=== PATIENT | male | born 1940 | race Caucasian/White ===

== ENCOUNTER 2019-02-23 08:41 | Emergency (ER) | payer MEDICARE ==
[2019-02-23 08:48] VITALS: RESP 18; TEMP 98.1
[2019-02-23] MEDS ORDERED: LISINOPRIL-HCTZ 20-12.5 MG 1 EACH TAB PO STA (09:10)
--- NOTE | 2019-02-23 09:10 | ED ---
General Adult HPI - General Chief complaint: Abdominal Pain Stated complaint: abd pain Time Seen by Provider: 02/23/19 09:00 Source: patient, RN notes reviewed Mode of arrival: ambulatory Limitations: no limitations - History of Present Illness Initial comments: Patient is a pleasant 79-year-old male presenting to the emergency Department with complaints of abdominal discomfort. Onset of symptoms was almost 2 weeks ago. Symptoms have been mild waxing and waning. Symptoms were worse today and discomfort is now moderate, rated 5/10. No associated nausea vomiting. No fevers. Patient did have some mild amount of loose stools. 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 Discomfort gets worse with pushing on the abdomen. Discomfort is left lower flank region. No back pain. Patient did not take his blood pressure medication this morning. - Related Data Home Medications Medication Instructions Recorded Confirmed Atorvastatin [Lipitor] 40 mg PO HS 08/01/16 02/23/19 Levothyroxine Sodium [Synthroid] 88 mcg PO DAILY 08/01/16 02/23/19 Warfarin [Coumadin] 2.5 mg PO MOWEFR 08/01/16 02/23/19 Warfarin [Coumadin] 5 mg PO SUTUTHSA 08/01/16 02/23/19 Lisinopril-Hctz 20-25 mg 1 tab PO DAILY 02/23/19 02/23/19 [Zestoretic 20-25] Metoprolol Succinate [Toprol Xl] 50 mg PO DAILY 02/23/19 02/23/19 amLODIPine [Norvasc] 5 mg PO DAILY 02/23/19 02/23/19 Previous Rx's Medication Instructions Recorded Dicyclomine [Bentyl] 20 mg PO QID PRN #20 tablet 02/23/19 Allergies Allergy/AdvReac Type Severity Reaction Status Date / Time meperidine [From Demerol] AdvReac Vomiting Verified 02/23/19 09:20 Review of Systems ROS Statement: Those systems with pertinent positive or pertinent negative responses have been documented in the HPI. ROS Other: All systems not noted in ROS Statement are negative. Constitutional: Denies: fever Eyes: Denies: eye pain ENT: Denies: ear pain Respiratory: Denies: cough Cardiovascular: Denies: chest pain Endocrine: Denies: fatigue Gastrointestinal: Reports: as per HPI Genitourinary: Denies: dysuria, hematuria Musculoskeletal: Denies: back pain Skin: Denies: rash Neurological: Denies: weakness Past Medical History Past Medical History: Atrial Fibrillation, Hypertension, Myocardial Infarction ([place]) Additional Past Medical History / Comment(s): hyperthyroidism History of Any Multi-Drug Resistant Organisms: None Reported Past Surgical History: Coronary Bypass/CABG, Heart Catheterization With Stent Past Psychological History: No Psychological Hx Reported Smoking Status: Former smoker Past Alcohol Use History: None Reported Past Drug Use History: None Reported General Exam Limitations: no limitations General appearance: alert, in no apparent distress Head exam: Present: normocephalic Eye exam: Present: normal appearance Neck exam: Present: normal inspection Respiratory exam: Present: normal lung sounds bilaterally Cardiovascular Exam: Present: regular rate, normal rhythm Expanded Peripheral pulses: 2+: Dorsalis Pedis (R), Dorsalis Pedis (L) GI/Abdominal exam: Present: soft, tenderness (Mild tenderness left lower flank region.), normal bowel sounds. Absent: distended, guarding, rebound, rigid, pulsatile mass Extremities exam: Present: normal inspection. Absent: pedal edema, calf tenderness Neurological exam: Present: alert Psychiatric exam: Present: normal affect, normal mood Skin exam: Present: normal color Course Vital Signs 02/23/19 02/23/19 08:45 10:09 Temperature 98.1 F Pulse Rate 77 70 Respiratory 18 18 Rate Blood Pressure 194/101 168/96 O2 Sat by Pulse 93 L 93 L Oximetry - Reevaluation(s) Reevaluation #1: 02/23/19 09:40 Patient does not want any pain medication. Medical Decision Making - Medical Decision Making Patient reevaluated and resting comfortably in bed. Patient and family updated on results and need for follow-up. - Lab Data Result diagrams: 02/23/19 09:02 02/23/19 09:02 Lab Results 02/23/19 02/23/19 02/23/19 Range/Units 09:02 09:02 09:02 WBC 9.5 (3.8-10.6) k/uL RBC 4.73 (4.30-5.90) m/uL Hgb 15.2 (13.0-17.5) gm/dL Hct 46.7 (39.0-53.0) % MCV 98.7 (80.0-100.0) fL MCH 32.1 (25.0-35.0) pg MCHC 32.5 (31.0-37.0) g/dL RDW 14.9 (11.5-15.5) % Plt Count 206 (150-450) k/uL Neutrophils % 79 % Lymphocytes % 11 % Monocytes % 6 % Eosinophils % 2 % Basophils % 1 % Neutrophils # 7.5 (1.3-7.7) k/uL Lymphocytes # 1.1 (1.0-4.8) k/uL Monocytes # 0.6 (0-1.0) k/uL Eosinophils # 0.2 (0-0.7) k/uL Basophils # 0.1 (0-0.2) k/uL PT 23.5 H (9.0-12.0) sec INR 2.4 H (<1.2) APTT 35.8 H (22.0-30.0) sec Sodium 142 (137-145) mmol/L Potassium 4.2 (3.5-5.1) mmol/L Chloride 108 H (98-107) mmol/L Carbon Dioxide 21 L (22-30) mmol/L Anion Gap 13 mmol/L BUN 28 H (9-20) mg/dL Creatinine 1.48 H (0.66-1.25) mg/dL Est GFR (CKD-EPI)AfAm 51 (>60 ml/min/1.73 sqM) Est GFR (CKD-EPI)NonAf 44 (>60 ml/min/1.73 sqM) Glucose 102 H (74-99) mg/dL Calcium 10.1 (8.4-10.2) mg/dL Total Bilirubin 1.1 (0.2-1.3) mg/dL AST 26 (17-59) U/L ALT 24 (21-72) U/L Alkaline Phosphatase 170 H (38-126) U/L Total Protein 7.8 (6.3-8.2) g/dL Albumin 4.4 (3.5-5.0) g/dL Amylase 146 H (30-110) U/L Lipase 288 (23-300) U/L Urine Color Urine Appearance (Clear) Urine pH (5.0-8.0) Ur Specific [place] (1.001-1.035) Urine Protein (Negative) Urine Glucose (UA) (Negative) Urine Ketones (Negative) Urine Blood (Negative) Urine Nitrite (Negative) Urine Bilirubin (Negative) Urine Urobilinogen (<2.0) mg/dL Ur Leukocyte Esterase (Negative) Urine RBC (0-5) /hpf Urine WBC (0-5) /hpf Urine WBC Clumps (None) /hpf Ur Squamous Epith Cells (0-4) /hpf Urine Mucus (None) /hpf 02/23/19 Range/Units 09:02 WBC (3.8-10.6) k/uL RBC (4.30-5.90) m/uL Hgb (13.0-17.5) gm/dL Hct (39.0-53.0) % MCV (80.0-100.0) fL MCH (25.0-35.0) pg MCHC (31.0-37.0) g/dL RDW (11.5-15.5) % Plt Count (150-450) k/uL Neutrophils % % Lymphocytes % % Monocytes % % Eosinophils % % Basophils % % Neutrophils # (1.3-7.7) k/uL Lymphocytes # (1.0-4.8) k/uL Monocytes # (0-1.0) k/uL Eosinophils # (0-0.7) k/uL Basophils # (0-0.2) k/uL PT (9.0-12.0) sec INR (<1.2) APTT (22.0-30.0) sec Sodium (137-145) mmol/L Potassium (3.5-5.1) mmol/L Chloride (98-107) mmol/L Carbon Dioxide (22-30) mmol/L Anion Gap mmol/L BUN (9-20) mg/dL Creatinine (0.66-1.25) mg/dL Est GFR (CKD-EPI)AfAm (>60 ml/min/1.73 sqM) Est GFR (CKD-EPI)NonAf (>60 ml/min/1.73 sqM) Glucose (74-99) mg/dL Calcium (8.4-10.2) mg/dL Total Bilirubin (0.2-1.3) mg/dL AST (17-59) U/L ALT (21-72) U/L Alkaline Phosphatase (38-126) U/L Total Protein (6.3-8.2) g/dL Albumin (3.5-5.0) g/dL Amylase (30-110) U/L Lipase (23-300) U/L Urine Color Yellow Urine Appearance Clear (Clear) Urine pH 5.5 (5.0-8.0) Ur Specific [place] 1.015 (1.001-1.035) Urine Protein Negative (Negative) Urine Glucose (UA) Negative (Negative) Urine Ketones Negative (Negative) Urine Blood Negative (Negative) Urine Nitrite Negative (Negative) Urine Bilirubin Negative (Negative) Urine Urobilinogen <2.0 (<2.0) mg/dL Ur Leukocyte Esterase Large H (Negative) Urine RBC <1 (0-5) /hpf Urine WBC 10 H (0-5) /hpf Urine WBC Clumps Rare H (None) /hpf Ur Squamous Epith Cells <1 (0-4) /hpf Urine Mucus Rare H (None) /hpf - Radiology Data Radiology results: report reviewed (Computed tomography scan of the abdomen pelvis shows diverticulosis without diverticulitis. Atrophy of left kidney. Age indeterminate compression deformity T12.) Disposition Clinical Impression: Abdominal pain Disposition: HOME SELF-CARE Condition: Stable Instructions (If sedation given, give patient instructions): Abdominal Pain (ED) Additional Instructions: Please follow-up with your primary care physician in the next day or 2 for recheck. Return for increased pain, fevers, worsening or changing symptoms or other concerns. Prescriptions: Dicyclomine [Bentyl] 20 mg PO QID PRN #20 tablet PRN Reason: Pain Is patient prescribed a controlled substance at d/c from ED?: No Referrals: Sergey Kauffman DO [Primary Care Provider] - 1-2 days
[2019-02-23 09:48] LABS: Basophils # (A) 0.1 k/uL (0-0.2); Basophils % (A) 1 %; Eosinophils # (A) 0.2 k/uL (0-0.7); Eosinophils % (A) 2 %; HCT 46.7 % (39.0-53.0); HGB 15.2 gm/dL (13.0-17.5); Lymphocytes # (A) 1.1 k/uL (1.0-4.8); Lymphocytes % (A) 11 %; MCH 32.1 pg (25.0-35.0); MCHC 32.5 g/dL (31.0-37.0); MCV 98.7 fL (80.0-100.0); Monocytes # (A) 0.6 k/uL (0-1.0); Monocytes % (A) 6 %; Neutrophils # (A) 7.5 k/uL (1.3-7.7); Neutrophils % (A) 79 %; Platelet Count 206 k/uL (150-450); RBC 4.73 m/uL (4.30-5.90); RDW 14.9 % (11.5-15.5); WBC 9.5 k/uL (3.8-10.6)
[2019-02-23 09:49] LABS: Appearance,Urine Clear (Clear); Bilirubin,Urine Negative (Negative); Blood,Urine Negative (Negative); Color,Urine Yellow; Glucose,Urine (UA) Negative (Negative); Ketones,Urine Negative (Negative); Leukocyte Esterase,Urine Large (Negative); Mucus,Urine Rare /hpf; Nitrite,Urine Negative (Negative); PH, Urine 5.5 (5.0-8.0); Protein,Urine Negative (Negative); RBC,Urine <1 /hpf (0-5); Specific Gravity,Urine 1.015 (1.001-1.035); Squamous Epithelial Cell,Urine <1 /hpf (0-4); Urobilinogen,Urine <2.0 mg/dL (<2.0); WBC,Urine 10 /hpf (0-5)
[2019-02-23 09:55] LABS: INR 2.4 (<1.2); Partial Thromboplastin Time 35.8 sec (22.0-30.0); Prothrombin Time 23.5 sec (9.0-12.0)
[2019-02-23 10:07] LABS: Albumin 4.4 g/dL (3.5-5.0); Calcium 10.1 mg/dL (8.4-10.2); Potassium 4.2 mmol/L (3.5-5.1); Total Bilirubin 1.1 mg/dL (0.2-1.3); Total Protein 7.8 g/dL (6.3-8.2)
[2019-02-23] MEDS ORDERED: SODIUM CHLORIDE 0.9% 1,000 ML IV STA (10:28)
--- NOTE | 2019-02-23 12:30 | CT ---
EXAMINATION TYPE: CT abdomen pelvis w con DATE OF EXAM: 02/23/2019 COMPARISON: 07/06/2016 HISTORY: Left side abdominal pain. CT DLP: 923.4 mGycm Automated exposure control for dose reduction was used. CONTRAST: CT scan of the abdomen pelvis is performed with IV Contrast, patient injected with 80 mL of Isovue 30 0. FINDINGS- LUNG BASES-heart is enlarged there is coronary artery calcification. Subsegmental consolidation at galilea th lung bases. Findings suggest chronic interstitial lung disease.. LIVER/GB- No gross abnormality is appreciated. PANCREAS- No gross abnormality is seen. SPLEEN- No gross abnormality is seen. ADRENALS- No gross abnormality is seen. KIDNEYS/BLADDER-no hydronephrosis. There is a exophytic lesion extending off the upper pole the right kidney too small to characterize but likely related to chest. 2 hypodense lesions involving the left kidney also likely related to simple cyst although there is severe cortical loss and atrophy of the left kidney.. BOWEL-diverticulosis of the colon. No CT evidence of diverticulitis.. LYMPH NODES- No greater than 1cm abdominal or pelvic lymph nodes areappreciated. OSSEOUS STRUCTURES-hypertrophic and degenerative change of the spine. There is a superior endplate co mpression fracture of T12. Posterior elements appear intact.. OTHER- aortic stent graft noted. [place] aneurysmal sac measures maximal dimension of 4.1 cm. IMPRESSION- 1. Diverticulosis with no CT evidence of diverticulitis. 2. Atrophy of the left kidney with bilateral simple appearing renal cysts. 3. Age-indeterminate mild superior endplate compression deformity T12. 4. Correlate for interstitial pulmonary lung disease such as pulmonary fibrosis. 5. Cardiomegaly with coronary artery dense calcification
[2019-02-23 13:48] VITALS: BP 187/97; PULSE 68
[2019-02-23] MEDS ORDERED: LISINOPRIL 10 MG TAB PO STA (13:48)
== END 2019-02-23 13:59 | disposition home or self-care (01) ==
LOC: EC 08:41
DX: R10.9 Unspecified abdominal pain (principal); N26.1 Atrophy of kidney (terminal); I48.91 Unspecified atrial fibrillation; I10 Essential (primary) hypertension; I25.2 Old myocardial infarction; E05.90 Thyrotoxicosis, unspecified without thyrotoxic crisis or storm; N28.1 Cyst of kidney, acquired; Z79.01 Long term (current) use of anticoagulants; Z79.890 Hormone replacement therapy; Z79.899 Other long term (current) drug therapy; Z88.5 Allergy status to narcotic agent; Z87.891 Personal history of nicotine dependence; Z95.1 Presence of aortocoronary bypass graft; Z95.5 Presence of coronary angioplasty implant and graft
CPT/HCPCS: 36415; 80053; 82150; 83690; 85025; 85610; 85730; 81001; 87086; 74177; 99284; 96360; Q9967

== ENCOUNTER → 2019-05-05 | Outpatient (CLI) | payer MEDICARE | END | disposition home or self-care (01) | LOC: CPPFTMAIN 09:12 | PROVIDERS: ATTEND Internal Medicine Critical Care Medicine | DX: J44.9 Chronic obstructive pulmonary disease, unspecified (principal); R94.2 Abnormal results of pulmonary function studies | CPT/HCPCS: 94060; 94726; 94729 ==